=== PATIENT | male | born 1990 | race Hispanic/Latino ===

== ENCOUNTER 2023-11-17 17:29 | Emergency (ER) | payer SELFPAY ==
[2023-11-17] VITALS (7 sets, daily range): BP systolic 108–147; BP diastolic 73–96; PULSE 70–86; RESP 13–19; TEMP 37; O2SAT 98–100
--- NOTE | ~2023-11-17 | XR_ITS ---
EXAMINATION: XR chest 2V Exam Date/Time: 11/17/2023 19:05 FIRER LOW PRESSURE HISTORY: chest pain; poor historian Comparison: None. RESULT: Lines, tubes, and devices: None. Lungs and pleura: Mild diffuse reticulonodular opacities with cuffing. Cardiomediastinal silhouette: Stable. Other: No acute osseous or upper abdominal finding. IMPRESSION: Pulmonary opacities may represent bronchiolitis, as can be seen with atypical infection, asthma, aspi ration, and small airways disease. Reviewed, dictated and finalized at location K. R LOW PRESSURE IMPRESSION: Pulmonary opacities may represent bronchiolitis, as can be seen with atypical i nfection, asthma, aspiration, and small airways disease.
--- NOTE | 2023-11-17 18:39 | ED.GENADULT ---
HPI - General Adult General Chief complaint: Alcohol Stated complaint: Alcohol Time Seen by Provider: 11/17/23 18:39 Focused HPI: Burke Henry is a 33 y/o [place]riot speaking male - through the certified court interpreter - Patient presents with reports that he was drinking ETOH on Friday and Friday and today he started to feel tingling to both hands and feet / nausea/vomiting - has not vomited today - he also feels SOB and he started to have some chest pain. GENERAL: Well-appearing, well-nourished, and in no acute distress. HEAD: Normocephalic, atraumatic. CHEST: Clear to auscultation. ?No respiratory distress. HEART: Regular rate and rhythm.? NEURO: ?Alert and oriented x3. Patient screened in triage and initial orders placed.? ?Additional care and disposition to be based upon?diagnostic testing and treatment. Related Data Allergies Allergy/AdvReac Type Severity Reaction Status Date / Time No Known Allergies Allergy Verified 11/17/23 20:26 Course Vital Signs Vital signs: Vital Signs Temperature 37.0 C 11/17/23 17:32 Pulse Rate 83 11/17/23 17:32 Respiratory Rate 18 11/17/23 17:32 Blood Pressure 147/84 H 11/17/23 17:32 Pulse Oximetry 100 11/17/23 17:32 Oxygen Delivery Room Air 11/17/23 17:32 Temperature 37.0 C 11/17/23 17:32 Pulse Rate 86 11/17/23 22:46 Respiratory Rate 15 11/17/23 22:46 Blood Pressure 121/73 11/17/23 22:46 Pulse Oximetry 98 11/17/23 22:46 Oxygen Delivery Room Air 11/17/23 21:14 Medical Decision Making Vital Signs Vital Signs: Vital Signs Temperature 37.0 C 11/17/23 17:32 Pulse Rate 83 11/17/23 17:32 Respiratory Rate 18 11/17/23 17:32 Blood Pressure 147/84 H 11/17/23 17:32 Pulse Oximetry 100 11/17/23 17:32 Oxygen Delivery Room Air 11/17/23 17:32 Temperature 37.0 C 11/17/23 17:32 Pulse Rate 86 11/17/23 22:46 Respiratory Rate 15 11/17/23 22:46 Blood Pressure 121/73 11/17/23 22:46 Pulse Oximetry 98 11/17/23 22:46 Oxygen Delivery Room Air 11/17/23 21:14 Lab Data 11/17/23 21:29 11/17/23 21:29 Labs: Lab Results 11/17/23 Range/Units 21:29 WBC 9.3 (4.5-10.0) K/mm3 RBC 5.17 (4.6-6.20) M/mm3 Hgb 15.7 (14.0-18.0) g/dL Hct 45.3 (42.0-52.0) % MCV 87.6 (80-100) fl MCH 30.4 (26-34) pg MCHC 34.7 (32-36) g/dl RDW 12.5 (11.5-14.5) % Plt Count 262 (150-375) k/mm3 MPV 9.9 (7.4-10.4) fl Immature Gran % (Auto) 0.2 (0-0.5) % Neut % (Auto) 50.7 (45.5-73.1) % Lymph % (Auto) 37.1 (18.3-44.2) % Owsley % (Auto) 10.3 H (2.6-8.5) % Eos % (Auto) 1.4 (0-4.4) % Baso % (Auto) 0.3 (0.2-1.2) % Lymph # (Auto) 3.45 H (0.9-3.2) K/mm3 Owsley # (Auto) 1.0 H (0.1-0.6) K/mm3 Eos # (Auto) 0.1 (0-0.3) K/mm3 Baso # (Auto) 0.0 (0.0-0.1) K/mm3 Abs Immat Gran (auto) 0.02 (0.00-0.031) K/mm3 Absolute Neuts (auto) 4.7 (1.3-6.7) K/mm3 Absolute Nucleated RBC 0.0 (0.0-0.012) K/mm3 Nucleated RBC % 0.0 (0.0-0.2) % Sodium 138 (137-145) mmol/L Potassium 3.3 L (3.4-5.0) mmol/L Chloride 104 (98-107) mmol/L Carbon Dioxide 24 (22-30) mmol/L Anion Gap 10 (8-16) mmol/L BUN 19 (9-20) mg/dL Creatinine 0.80 (0.7-1.3) mg/dL Estim Creat Clear Calc 124 ml/min Estimated GFR > 60 (59 - ) Glucose 100 (65-110) mg/dL Calcium 9.5 (8.4-10.2) mg/dL Total Bilirubin 1.8 H (0.2-1.3) mg/dL AST 40 (17-59) U/L ALT 76 H (6-50) U/L Alkaline Phosphatase 72 (38-126) U/L Troponin I < 0.012 (0.000-0.034) ng/mL Total Protein 8.0 (6.3-8.2) g/dL Albumin 4.8 (3.5-5.1) g/dL Discharge Plan Discharge Clinical Impression: Nausea & vomiting Patient Disposition: Elopement After Seen by Prov Condition: Stable Follow-up/Referrals: PHYSICIAN,[employer] PERSON [Primary Care Provider] -
--- NOTE | 2023-11-17 18:43 | ECG_ITS ---
Measurements Intervals [place] Rate: 75 P: 38 TX: 155 QRS: 59 QRSD: 105 T: 18 QT: 388 QTc: 434 Interpretive Statements SINUS RHYTHM POSSIBLE INFERIOR MYOCARDIAL INFARCTION , PROBABLY OLD WITH POSTERIOR EXTENSION [30 ms Q WAVE IN II/aVFPROMINENT R WAVE IN V1/ NO PREVIOUS ECG AVAILABLE FOR COMPARISON Electronically Signed On 11-18-2023 15:20:21 [employer] by Rosario Workman M.D.
[2023-11-17] MEDS: LACTATED RINGERS 1,000 ML 999 ML IV CONT (21:28)
[2023-11-17] MEDS: ONDANSETRON INJ 4 MG/2 ML VIAL IV PUSH (21:28)
[2023-11-17] MEDS: FAMOTIDINE 20 MG/2 ML VIAL IV PUSH (21:28)
[2023-11-17 21:36] LABS: Basophils Percent Auto 0.3 % (0.2-1.2); Eosinophils Absolute Auto 0.1 K/mm3 (0-0.3); Eosinophils Percent Auto 1.4 % (0-4.4); Hematocrit 45.3 % (42.0-52.0); Hemoglobin 15.7 g/dL (14.0-18.0); Immature Granulocyte Absolute 0.02 K/mm3 (0.00-0.031); Immature Granulocyte Percent A 0.2 % (0-0.5); Lymphocytes Absolute Auto 3.45 K/mm3 (0.9-3.2); Lymphocytes Percent Auto 37.1 % (18.3-44.2); Mean Corpuscular HGB Conc 34.7 g/dl (32-36); Mean Corpuscular Hemoglobin 30.4 pg (26-34); Mean Corpuscular Volume 87.6 fl (80-100); Mean Platelet Volume 9.9 fl (7.4-10.4); Monocytes Percent Auto 10.3 % (2.6-8.5); Neutrophils Absolute Auto 4.7 K/mm3 (1.3-6.7); Neutrophils Percent Auto 50.7 % (45.5-73.1); Platelet Count Result 262 k/mm3 (150-375); Red Blood Count 5.17 M/mm3 (4.6-6.20); Red Cell Distribution Width 12.5 % (11.5-14.5); White Blood Count 9.3 K/mm3 (4.5-10.0)
[2023-11-17 21:49] LABS: Alanine Aminotransferase 76 U/L (6-50); Albumin Level 4.8 g/dL (3.5-5.1); Alkaline Phosphatase 72 U/L (38-126); Anion Gap 10 mmol/L (8-16); Aspartate Amino Transferase 40 U/L (17-59); Bilirubin,Total 1.8 mg/dL (0.2-1.3); Blood Urea Nitrogen 19 mg/dL (9-20); Calcium 9.5 mg/dL (8.4-10.2); Carbon Dioxide 24 mmol/L (22-30); Chloride 104 mmol/L (98-107); Estimated CRCL calculation 124 ml/min; Estimated Glomerular Filt Rate > 60; Glucose 100 mg/dL (65-110); Potassium 3.3 mmol/L (3.4-5.0); Sodium 138 mmol/L (137-145)
[2023-11-17 22:00] LABS: Troponin I < 0.012 ng/mL (0.000-0.034)
--- NOTE | 2023-11-17 23:15 | PC.NURSE ---
This RN entered room to check on and update pt. Nobody in room. IV in trash. blood on floor. Arianna, winding rack operator made aware.
== END 2023-11-17 23:30 | disposition left against medical advice (07) ==
LOC: ANHED 22:35
PROVIDERS: Nurse Practitioner Family; Emergency Provider Physician Assistant
DX: R11.2 Nausea with vomiting, unspecified (principal); R94.31 Abnormal electrocardiogram [ECG] [EKG]
CPT/HCPCS: 36415; 71046; 80053; 84484; 85025; 93005; 96361; 96374; 96375; 99284; J2405; J7120